=== PATIENT | male | born 1990 | race Caucasian/White ===

== ENCOUNTER 2019-11-19 20:52 | Emergency (ER) | payer OTHER ==
[~2019-11-19] VITALS: Ht 170.2 cm; Wt 70.3 kg
[2019-11-20] VITALS: BP 123/72
== END 2019-11-20 | disposition home or self-care (01) ==
LOC: M.ERS 20:52
DX: S60.311A Abrasion of right thumb, initial encounter (principal); W01.0XXA Fall on same level from slipping, tripping and stumbling without subsequent striking against object, initial encounter; Y93.89 Activity, other specified; Y92.89 Other specified places as the place of occurrence of the external cause; Y99.8 Other external cause status